=== PATIENT | male | born 1975 | race Caucasian/White ===

== ENCOUNTER 2016-09-16 13:54 | Emergency (ER) | payer SELFPAY ==
[~2016-09-16] VITALS: Ht 172.7 cm; Wt 77.2 kg
[~2016-09-16 13:54] MED LIST: AC325T PO; AMOX500C5 PO; AZIT250T81 PO; BENZ-13 PO; CETI10TA PO; CODE-54 PO; CPR500T PO; DICY20TA33 PO; DOXY100T41 PO; HYDR-3702 PO; HYDR-3881 PO; HYDR25CA5 PO; IBP200T PO; MIRALAX 17 GM P17 GM PO; NF-TORA10 PO; NO; NO HOME MEDICATIONS; OMEP20TA PO; ONDA4TAB8 PO; ONDAN4ODT PO; PRM25T PO; RANI300C PO; SUMA100T3 PO; TRAM-25 PO; TRM50T PO
--- OUTSIDE RECORDS SUMMARY | 2016-09-16 13:57 | XMS REPORT | Continuity of Care Document ---
Author Author [facility] Organization [facility] Address Unknown Phone Unavailable Care Team Providers Care Podiatrist Name Role Phone Seven Tripathi PCP [phone] Insurance Providers Payer Name Policy Number Subscriber Name Relationship Self Pay Andrew Renae Jr 18 Self / Same As Patient Chief Complaint and Reason for Visit Chief Complaint GI Complaint Reason for Visit Abdominal pain [id number] and vomiting Problems Medical Problems Problem Onset Date Status Pain in testicle 06/21/2013 Resolved Pleurisy 07/15/2013 Resolved Cough 09/03/2013 Resolved Abdominal pain 10/04/2013 Resolved Abdominal pain ~11/17/2013 Resolved Dental caries ~12/29/2013 Active Fracture of tooth ~12/29/2013 Resolved Toothache ~12/29/2013 Resolved Nausea and vomiting ~02/15/2014 Active Abdominal pain ~02/13/2014 Active Productive cough ~03/17/2014 Active Nasal congestion ~03/17/2014 Active Abdominal pain ~04/18/2014 Active URI, acute Unknown Active Costochondritis Unknown Active Medications Medication Dose Route Sig Days/Qty Instructions Order Date Discontinued Date Status Hydrocodone Bit/Acetaminophen 1 Ea ORAL EVERY 6 HOURS PRN 20 Qty 07/12/13 Discontinued Ciprofloxacin 1 Tab ORAL TWICE A DAY 28 Qty 06/21/13 07/12/13 Discontinued Doxycycline Hyclate 1 Tab ORAL TWICE A DAY 20 Qty 07/12/13 09/03/13 Discontinued Promethazine Hcl 25 Mg ORAL q6 hrs PRN CRAMPS 10 Qty 11/17/13 Discontinued Amoxicillin 1 Tab ORAL THREE TIMES A DAY 30 Qty 12/29/13 02/15/14 Discontinued Acetaminophen/Codeine 1-2 Tab ORAL THREE TIMES A DAY 30 Qty 12/29/13 02/15/14 Discontinued Ondansetron Hcl 1 Tab ORAL EVERY 6 HOURS PRN prn 12 Qty 02/15/1403/18 Discontinued Cetirizine Hcl 10 Mg ORAL NEEDED 03/18/14 04/19/14 Discontinued Ondansetron 4 Mg ORAL FOUR TIMES DAILY For nausea 12 Qty 03/18/14 Discontinued Amoxicillin 1 Tab ORAL THREE TIMES A DAY 30 Qty 03/18/14 04/19/14 Discontinued Benzonatate 100 Mg ORAL FOUR TIMES DAILY 20 Qty 03/18/14 04/19/14 Discontinued [No] 04/20/14 04/20/14 Discontinued Acetaminophen/Hydrocodone Bitart 2 Tab ORAL EVERY 6 HOURS PRN PAIN 15 Qty 04/20/14 Active Polyethylene Glycol 17 Gm ORAL DAILY 30 Qty 04/20/14 Active Omeprazole 20 Mg ORAL DAILY 30 Qty 04/20/14 Active Sumatriptan Succinate 100 Mg ORAL DIRECTED 2 Qty Take 1 tab at headache onset. May repeat x 1 in 2 hours. Max 200 mg in 24 hours. 04/20/14 Active Hydroxyzine Pamoate 25 Mg ORAL EVERY 6 HOURS PRN PAIN 30 Qty 09/13/14 Active Tramadol Hcl 50-100 Mg ORAL EVERY 6 HOURS PRN PAIN 30 Qty 09/13/14 Active Dicyclomine Hcl 20 Mg ORAL TWICE A DAY 14 Qty 11/16/14 Active Ondansetron Hcl 4 Mg ORAL prn Q 4 hrs 10 Qty 11/16/14 Active Social History No social history. Hospital Discharge Instructions No hospital discharge instructions. Plan of Care Discharge Date 11/16/14 9:17am Disposition 01 HOME OR SELF-CARE Condition at Discharge Stable Instructions/Education Provided Acute Nausea and Vomiting (GEN) Prescriptions See Medications Section Referrals Seven Tripathi Functional Status No functional status results. Allergies, Adverse Reactions, Alerts Allergen Type Severity Reaction Status Last Updated No Known Drug Allergies Active 02/15/14 Immunizations No immunization records. Vital Signs Acute Vital Signs Vital Response Date/Time Temperature (Fahrenheit) 97.3 Pulse 82 bpm Respirations 18 Height 5 ft 8 in Weight 180 lb Body Mass Index 27.0 kg/m^2 Results Test Source Date Result Interp. Ref. Range Comments Activated Partial Thromboplast Time July 12, 2013 9:35am 30.1 SEC N 25.0-39.0 Alanine Aminotransferase (ALT/SGPT) November 16, 2014 7:52am 34 U/L N 30- 65 Albumin November 16, 2014 7:52am 4.3 g/dL N 3.4-5.0 Albumin/Globulin Ratio November 16, 2014 7:52am 1.387 N 1.1-1.8 Alkaline Phosphatase November 16, 2014 7:52am 120 U/L N 38-126 Amylase Level April 19, 2014 10:10pm 97 U/L N 25-115 Anion Gap November 16, 2014 7:52am 10.3 MEQ/L N 3-15 Aspartate Amino Transf (AST/SGOT) November 16, 2014 7:52am 23 U/L N 15-37 BUN/Creatinine Ratio November 16, 2014 7:52am 11 N 10-20 Basophils # (Auto) November 16, 2014 7:52am 0.0 10^3uL Basophils (%) (Auto) November 16, 2014 7:52am 0 % N 0-2 Blood Urea Nitrogen November 16, 2014 7:52am 8 mg/dL N 7-18 C-Reactive Protein September 13, 2014 8:32am 1.90 MG/DL H 0.0-0.9 Calcium Level November 16, 2014 7:52am 9.8 mg/dL N 8.8-10.8 Calcium/Ionized Calcium Ratio November 16, 2014 7:52am 4.2 mg/dL N 3.8-4.6 Calculated Osmolality November 16, 2014 7:52am 267 mosm/L L 280-300 Carbon Dioxide Level November 16, 2014 7:52am 29 mmol/L N 22-29 Chloride Level November 16, 2014 7:52am 104 mmol/L N 98-108 Creatine Kinase MB September 13, 2014 8:32am 0.8 NG/ML N 0.0-6.0 Creatinine November 16, 2014 7:52am 0.74 mg/dL L 0.8-1.5 D-Dimer September 13, 2014 8:32am 0.31 ug/mL N 0.00-0.41 Eosinophils # (Auto) November 16, 2014 7:52am 0.3 10^3uL Eosinophils (%) (Auto) November 16, 2014 7:52am 3 % N 0-4 Estimat Glomerular Filtration Rate November 16, 2014 7:52am 141.7 Estimated GFR (Non- November 16, 2014 7:52am 117.1 Glucose Level November 16, 2014 7:52am 104 mg/dL N 70-110 Hematocrit November 16, 2014 7:52am 42.80 % N 39.00-50.00 Hemoglobin November 16, 2014 7:52am 15.2 g/dL N 13.5-17.0 Influenza Virus Type A Antibody September 13, 2014 9:35am Negative Influenza Virus Type B Antibody September 13, 2014 9:35am Negative Lipase November 16, 2014 7:52am 73 U/L N 23-300 Lymphocytes # (Auto) November 16, 2014 7:52am 1.5 X10^3 Lymphocytes (%) (Auto) November 16, 2014 7:52am 17 % L 20-46 Mean Corpuscular Hemoglobin November 16, 2014 7:52am 28.8 PG N 26.0-34.0 Mean Corpuscular Hemoglobin Concent November 16, 2014 7:52am 35.5 g/dL N 31.0-37.0 Mean Corpuscular Volume November 16, 2014 7:52am 81 FL N 80-100 Mean Platelet Volume November 16, 2014 7:52am 10.5 FL H 6.0-9.5 Monocytes # (Auto) November 16, 2014 7:52am 0.6 X10^3 Monocytes (%) (Auto) November 16, 2014 7:52am 7 % N 3-11 Neutrophils # (Auto) November 16, 2014 7:52am 6.4 X10^3 Neutrophils (%) (Auto) November 16, 2014 7:52am 73 % H 51-67 Platelet Count November 16, 2014 7:52am 199 10^3uL N 150-450 Potassium Level November 16, 2014 7:52am 4.4 mmol/L N 3.5-5.1 Prothromb Time International Ratio July 12, 2013 9:35am 0.9 N 0.8- 1.4 Prothrombin Time July 12, 2013 9:35am 12.2 SEC L 12.3-14.4 Red Blood Count November 16, 2014 7:52am 5.28 10^6uL N 4.50-5.50 Red Cell Distribution Width November 16, 2014 7:52am 12.5 % N 11.8-15.6 Sodium Level November 16, 2014 7:52am 139 mmol/L N 135-150 Stool Occult Blood October 04, 2013 1:20am Negative Negative Collected by nurse? YHas specimen been collected/obtained? Y Stool Occult Blood Expiration Date October 04, 2013 1:20am 06/2015 Collected by nurse? YHas specimen been collected/obtained? Y Stool Occult Blood Lot Number October 04, 2013 1:20am 2421 1l Collected by nurse? YHas specimen been collected/obtained? Y Thyroid Stimulating Hormone (TSH) July 12, 2013 9:35am 0.08 UIU/ML L 0.46-4.68 Total Bilirubin November 16, 2014 7:52am 0.3 mg/dL N 0.1-1.0 Total Creatine Kinase September 13, 2014 8:32am 102 U/L N 55-170 Total Protein November 16, 2014 7:52am 7.4 g/dL N 6.4-8.5 Troponin I September 13, 2014 8:32am < 0.012 ng/mL 0.010-0.080 Urine Bacteria November 17, 2013 9:25am None seen /HPF Collected by nurse? NUrine collection method Clean Catch Urine Bilirubin April 19, 2014 10:10pm Negative Negative Urine collection method Clean Catch Urine Blood April 19, 2014 10:10pm Negative Negative Urine collection method Clean Catch Urine Clarity April 19, 2014 10:10pm Clear Urine collection method Clean Catch Urine Collection Type April 19, 2014 10:10pm Clean catch Urine collection method Clean Catch Urine Color April 19, 2014 10:10pm Yellow Urine collection method Clean Catch Urine Glucose (UA) April 19, 2014 10:10pm Negative Negative Urine collection method Clean Catch Urine Ketones April 19, 2014 10:10pm Negative Negative Urine collection method Clean Catch Urine Leukocyte Esterase April 19, 2014 10:10pm Negative Negative Urine collection method Clean Catch Urine Mucus July 12, 2013 9:35am 4+ H Urine collection method Clean Catch Urine Nitrite April 19, 2014 10:10pm Negative Negative Urine collection method Clean Catch Urine Protein April 19, 2014 10:10pm Negative Negative Urine collection method Clean Catch Urine RBC November 17, 2013 9:25am None seen /HPF Collected by nurse? NUrine collection method Clean Catch Urine Specific [place] April 19, 2014 10:10pm 1.025 1.005-1.030 Urine collection method Clean Catch Urine Squamous Epithelial Cells November 17, 2013 9:25am None /LPF Collected by nurse? NUrine collection method Clean Catch Urine Urobilinogen April 19, 2014 10:10pm 0.2 mg/dL 0.2-1.0 Urine collection method Clean Catch Urine WBC November 17, 2013 9:25am None seen /HPF Collected by nurse? NUrine collection method Clean Catch Urine pH April 19, 2014 10:10pm 7.0 5.0 - 8.0 Urine collection method Clean Catch Volume Urine Centrifuged November 17, 2013 9:25am 10 ml Collected by nurse? NUrine collection method Clean Catch White Blood Count November 16, 2014 7:52am 8.89 10^3uL N 4.0-11.0 Procedures No known history of procedures. Encounters Encounter Location Date/Time Departed Emergency Room [facility] 11/16/14 7:13am Recent Diagnosis
[2016-09-16 14:01] VITALS: BP 137/70
--- OUTSIDE RECORDS SUMMARY | 2016-09-16 14:01 | XMS REPORT | Continuity of Care Document ---
Author Author [facility] Organization [facility] Address Unknown Phone Unavailable Care Team Providers Care Train Controller Name Role Phone Seven Tripathi PCP [phone] Insurance Providers Payer Name Policy Number Subscriber Name Relationship Self Pay Andrew Renae Jr 18 Self / Same As Patient Chief Complaint and Reason for Visit Chief Complaint GI Complaint Reason for Visit Abdominal pain [id number] and vomiting Problems Medical Problems Problem Onset [...] NUrine collection method Clean Catch Urine Specific [place] April 19, 2014 10:10pm 1.025 1.005-1.030 Urine [...] Encounters Encounter Location Date/Time Departed Emergency Room [facility] 11/16/14 7:13am Recent Diagnosis
--- NOTE | 2016-09-16 14:45 | NUR ---
Large amount of yellow/brown/black material flushed from Rt ear with warmed tap water irrigation. Dr. Fields has checked ear and said no further irrigation required. Pt tolerated well overall.
[2016-09-16] MEDS ORDERED: AZIT250T81 PO (14:46)
== END 2016-09-16 15:05 | disposition home or self-care (01) ==
LOC: ED 13:56
DX: H66.93 Otitis media, unspecified, bilateral (principal); H61.21 Impacted cerumen, right ear; F17.210 Nicotine dependence, cigarettes, uncomplicated
CPT/HCPCS: 69209; 99283

== ENCOUNTER → 2016-12-07 | Emergency (ER) | payer SELFPAY ==
[~2016-12-07] VITALS: Ht 172.7 cm; Wt 81.4 kg
[~2016-12-07] MED LIST changes: +ACHYD1T PO
--- OUTSIDE RECORDS SUMMARY | 2016-12-07 08:20 | XMS REPORT | Continuity of Care Document ---
Author Author [facility] Organization [facility] Address Unknown Phone Unavailable Care Team Providers Care Law Firm Receptionist Name Role Phone Seven Tripathi PCP [phone] Insurance Providers Payer Name Policy Number Subscriber Name Relationship Self Pay Andrew Renae Jr 17 Self / Same As Patient Chief Complaint and Reason for Visit Chief Complaint GI Complaint Reason for Visit Abdominal pain [id number] and vomiting Problems Medical Problems Problem Onset [...] NUrine collection method Clean Catch Urine Specific [place] April 19, 2014 10:10pm 1.025 1.005-1.030 Urine [...] Encounters Encounter Location Date/Time Departed Emergency Room [facility] 11/16/14 7:13am Recent Diagnosis
--- OUTSIDE RECORDS SUMMARY | 2016-12-07 08:21 | XMS REPORT | Continuity of Care Document ---
Author Author [facility] Organization [facility] Address Unknown Phone Unavailable Care Team Providers Care Inspector Toys Name Role Phone Seven Tripathi PCP [phone] Insurance Providers Payer Name Policy Number Subscriber Name Relationship Self Pay Andrew Renae Jr 17 Self / Same As Patient Chief Complaint and Reason for Visit Chief Complaint GI Complaint Reason for Visit Abdominal pain [id number] and vomiting Problems Medical Problems Problem Onset [...] NUrine collection method Clean Catch Urine Specific [place] April 19, 2014 10:10pm 1.025 1.005-1.030 Urine [...] Encounters Encounter Location Date/Time Departed Emergency Room [facility] 11/16/14 7:13am Recent Diagnosis
[2016-12-07 09:16] LABS: BILIRUBIN,URINE Negative (Negative); CLARITY,URINE Cloudy; GLUCOSE, URINE (UA) Negative (Negative); LEUKOCYTE ESTERASE ,URINE Negative (Negative); UROBILINOGEN,URINE 0.2 mg/dL (0.2-1.0)
[2016-12-07 09:23] LABS: BASOPHILS % (AUTO) 0 % (0-2); EOSINOPHILS # (AUTO) 0.6 10^3uL; EOSINOPHILS % (AUTO) 8 % (0-4); LYMPHOCYTES # (AUTO) 1.6 X10^3; MEAN CORPUSCULAR HEMOGLOBIN 28.2 PG (26.0-34.0); MEAN CORPUSCULAR HGB CONC 34.4 g/dL (31.0-37.0); MEAN CORPUSCULAR VOLUME 82 FL (80-100); MEAN PLATELET VOLUME 11.8 FL (6.0-9.5); MONOCYTES # (AUTO) 0.6 X10^3; MONOCYTES % (AUTO) 9 % (3-11); NEUTROPHILS % (AUTO) 59 % (51-67); PLATELET COUNT 186 10^3uL (150-450); WHITE BLOOD COUNT 6.82 10^3uL (4.0-11.0)
[2016-12-07 09:23] LABS: COLOR,URINE Yellow
[2016-12-07 09:34] LABS: AMPHETAMINE SCREEN, URINE Negative (Negative); CANNABINOID SCREEN, URINE Negative (Negative); METHAMPHETAMINE SCREEN URINE S NEGATIVE (NEGATIVE); OPIATE SCREEN URINE Positive (Negative); PROPOXYPHENE STAT NEGATIVE (NEGATIVE)
[2016-12-07 09:36] LABS: ALBUMIN 3.6 g/dL (3.4-5.0); ALKALINE PHOSPHATASE 153 U/L (38-126); ANION GAP 10.9 MEQ/L (3-15); BUN/CREATININE RATIO 8 (10-20); CALCULATED IONIZED CALCIUM 4.1 mg/dL (3.8-4.6); CREATINE KINASE 92 U/L (55-170); LIPASE* 78 U/L (23-300); TOTAL PROTEIN 6.3 g/dL (6.4-8.5)
[2016-12-07 11:27] VITALS: BP 111/71
--- NOTE | 2016-12-07 16:03 | Diagnostic Imaging Report ---
Abdominal series with PA chest. INDICATION: Abdominal pain. FINDINGS: The lungs appear clear without focal infiltrate or effusion. There is no pneumothorax. Heart size and mediastinal contours are appropriate. Pulmonary vascularity appears within normal limits. The bowel gas pattern appears nonobstructed. There is moderate stool within the colon. No abnormal small bowel dilatation is evident. No air-fluid levels are demonstrated. There is no free air. No abnormal abdominal calcifications are evident. IMPRESSION: 1. No radiographically evidence of an acute cardio pulmonary process. 2. Moderate stool throughout the colon without findings to suggest bowel obstruction. No air-fluid levels or free air demonstrated. Dictated by: Dictated on workstation # [id number]
== END ==
LOC: ED 08:17
DX: S39.011A Strain of muscle, fascia and tendon of abdomen, initial encounter (principal); X50.0XXA Overexertion from strenuous movement or load, initial encounter; R19.7 Diarrhea, unspecified
CPT/HCPCS: 36415; 74022; 80053; 80307; 81003; 82550; 82553; 83690; 84443; 84484; 85025; 85610; 86140; 93005; 93010; 99284